=== PATIENT | male | born 1975 | race Caucasian/White ===

== ENCOUNTER 2019-10-09 09:11 | Inpatient (IN) | payer OTHER ==
[2019-10-09 09:46] VITALS: BMI 23.3
--- NOTE | 2019-10-09 10:49 | HP ---
CIWA Score Nausea/Vomitin-No Nausea/No Vomiting Muscle Tremors: 4-Moderate,w/Arms Extend Anxiety: 2 Agitation: 1-Slight > Activity Paroxysmal Sweats: 1-Minimal Palms Moist Orientation: 0-Oriented Tacttile Disturbances: 0-None Auditory Disturbances: 0-None Visual Disturbances: 0-None Headache: 0-None Present CIWA-Ar Total Score: 8 - Admission Criteria OASAS Guidelines: Admission for Medically Managed Detox: Requires at least one of the followin. CIWA greater than 12 2. Seizures within the past 24 hours 3. Delirium tremens within the past 24 hours 4. Hallucinations within the past 24 hours 5. Acute intervention needed for co occurring medical disorder 6. Acute intervention needed for co occurring psychiatric disorder 7. Severe withdrawal that cannot be handled at a lower level of care (continued vomiting, continued diarrhea, abnormal vital signs) requiring intravenous medication and/or fluids 8. Admission ROS [facility] Allergies/Adverse Reactions: Allergies Allergy/AdvReac Type Severity Reaction Status Date / Time No Known Allergies Allergy Verified 10/09/19 09:34 History of Present Illness: pt here requesting detox from etoh use , reports 6 years of 10-12 beers/day , sober x year, relapsed 1 mo ago , latest use yesterday , went to [facility] 2/2 intoxication , given meds . Reports tremors if not drinking , denies seizures or blackouts. 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 Exam Limitations: No Limitations - Ebola screening Have you traveled outside of the country in the last 21 days: No Have you had contact with anyone from an Ebola affected area: No Do you have a fever: No - Review of Systems Constitutional: Loss of Appetite EENT: reports: No Symptoms Reported Respiratory: reports: No Symptoms reported Cardiac: reports: No Symptoms Reported GI: reports: Diarrhea, Nausea, Poor Appetite : reports: No Symptoms Reported Musculoskeletal: reports: No Symptoms Reported Integumentary: reports: No Symptoms Reported Neuro: reports: No Symptoms reported Endocrine: reports: No Symptoms Reported Psychiatric: reports: Orientated x3, Anxious Patient History - Smoking Cessation Smoking history: Never smoked - Substances abused Alcohol Substance route: Oral Frequency: Daily Amount used: BEERS- 2PK(16OZ) Age of first use: 16 Date of last use: 10/08/19 Admission Physical Exam BHS - Vital Signs Vital Signs: Vital Signs - 24 hr 10/09/19 09:34 Temperature 98.3 F Pulse Rate 110 H Respiratory 18 Rate Blood Pressure 132/78 - Physical General Appearance: Yes: Mild Distress, Anxious HEENTM: Yes: EOMI, Hearing grossly Normal, Normocephalic, Normal Voice Respiratory: Yes: Chest Non-Tender, Lungs Clear, Normal Breath Sounds, No Respiratory Distress, No Accessory Muscle Use Neck: Yes: No masses,lesions,Nodules, Trachea in good position Cardiology: Yes: Regular Rhythm, Regular Rate, S1, S2, Tachycardia Abdominal: Yes: Normal Bowel Sounds, Non Tender, Soft Musculoskeletal: Yes: Gait Steady Extremities: Yes: Normal Capillary Refill, Normal Inspection, Normal Range of Motion, Non-Tender, Tremors Neurological: Yes: Fully Oriented, Alert, Motor Strength 5/5, Normal Mood/Affect Integumentary: Yes: Warm - Diagnostic (1) Alcohol intoxication Current Visit: Yes Status: Acute Breathalyzer - Breathalyzer Breathalyzer: 0.157 Urine Drug Screen - Test Device Lot number: [id number] Expiration date: 06/03/21 - Control Is test valid?: Yes - Results Drug screen NEGATIVE: No Urine drug screen results: BZO-Benzodiazepines Inpatient Rehab Admission - Rehab Decision to Admit Inpatient rehab admission?: No
[2019-10-09] MEDS ORDERED: METHOCARBAMOL 500 MG TABLET PO PRN (10:53)
[2019-10-09] MEDS ORDERED: ACETAMINOPHEN 325 MG TABLET (FP) PO PRN (10:53)
[2019-10-09] MEDS ORDERED: MENTHOL/PHENOL 1 EACH UD MM PRN (10:53)
[2019-10-09] MEDS ORDERED: MELATONIN 5 MG TABLETS PO PRN (10:53)
[2019-10-09] MEDS ORDERED: MAG HYDROX/AL HYDROX/SIMETH 30 ML UNIT-DOSE CUP PO PRN (10:53)
[2019-10-09] MEDS ORDERED: IBUPROFEN 400 MG TABLET (FP) PO PRN (10:53)
[2019-10-09] MEDS ORDERED: MAGNESIUM HYDROX 2400MG/30ML ORAL SUSPENSION 30 ML CUP PO PRN (10:53)
[2019-10-09] MEDS ORDERED: MAGNESIUM CITRATE 300 ML BOTTLE PO PRN (10:53)
[2019-10-09] MEDS ORDERED: BISMUTH SUBSALICYLATE 524 MG/30 ML UD PO PRN (10:53)
[2019-10-09] MEDS: diazePAM 5 MG TABLET PO SCH ×2 (14:53→21:38)
[2019-10-09 14:58] LABS: HEMATOCRIT 41.6 % (35.4-49); HEMOGLOBIN 13.4 GM/dL (11.7-16.9); MCH 26.8 pg (25.7-33.7); MCHC 32.2 g/dl (32.0-35.9); MEAN CELL VOLUME 83.3 fl (80-96); MEAN PLT VOLUME 8.8 fl (7.5-11.1); PLATELET COUNT 274 K/MM3 (134-434); RBC 4.99 M/mm3 (4.00-5.60); RDW 20.6 % (11.9-15.9); WHITE BLOOD COUNT 3.8 K/mm3 (4.0-10.0)
[2019-10-09 15:16] LABS: ALBUMIN 3.9 g/dl (3.4-5.0); BILIRUBIN,TOTAL 0.8 mg/dL (0.2-1); BLOOD UREA NITROGEN 3.9 mg/dL (7-18); CALCIUM 8.6 mg/dL (8.5-10.1); CREATININE 0.7 mg/dL (0.55-1.3); POTASSIUM 3.8 mmol/L (3.5-5.1); TOT PROT 7.6 g/dl (6.4-8.2)
[2019-10-09] MEDS: diazePAM 5 MG TABLET PO PRN ×2 (16:52→21:22)
[2019-10-09] MEDS: hydrOXYzine PAMOATE 25 MG CAPSULE (FP) PO PRN (18:41)
[2019-10-09] MEDS: ACETAMINOPHEN 325 MG TABLET (FP) PO PRN (19:37)
[2019-10-09] MEDS: THIAMINE HCL 100 MG TABLET (FP) PO SCH (21:22)
[2019-10-10] MEDS: diazePAM 5 MG TABLET PO PRN ×3 (02:19→15:50)
[2019-10-10] MEDS: diazePAM 5 MG TABLET PO SCH ×3 (06:23→22:32)
[2019-10-10] MEDS: PRENATAL VITAMINS W/ FOLIC ACID TABLET (FP) PO SCH (10:36)
[2019-10-10] MEDS: ACETAMINOPHEN 325 MG TABLET (FP) PO PRN (10:37)
--- NOTE | 2019-10-10 15:46 | PN ---
S CIWA - CIWA Score Nausea/Vomitin-No Nausea/No Vomiting Muscle Tremors: 4-Moderate,w/Arms Extend Anxiety: 3 Agitation: 1-Slight > Activity Paroxysmal Sweats: No Perspiration Orientation: 0-Oriented Tacttile Disturbances: 0-None Auditory Disturbances: 0-None Visual Disturbances: 2-Mild Sensitivity Headache: 3-Moderate CIWA-Ar Total Score: 13 [facility] Progress Note (SOAP) Subjective: Anxious, H/A, Tremors, Diarrhea. Objective: PATIENT A & O X 3, OBSERVED AMBULATING ON DETOX UNIT UNASSISTED. IN NO ACUTE DISTRESS. 10/10/19 15:43 Vital Signs Temperature 98.2 F 10/10/19 13:35 Pulse Rate 120 H 10/10/19 13:35 Respiratory Rate 18 10/10/19 13:35 Blood Pressure 135/94 10/10/19 13:35 O2 Sat by Pulse Oximetry (%) Laboratory Tests 10/09/19 10/09/19 10/09/19 11:30 11:30 11:30 WBC 3.8 L RBC 4.99 Hgb 13.4 Hct 41.6 MCV 83.3 MCH 26.8 MCHC 32.2 RDW 20.6 H Plt Count 274 MPV 8.8 Sodium 139 Potassium 3.8 Chloride 102 Carbon Dioxide 23 Anion Gap 14 BUN 3.9 L Creatinine 0.7 Est GFR (CKD-EPI)AfAm 134.91 Est GFR (CKD-EPI)NonAf 116.40 Random Glucose 123 H Calcium 8.6 Total Bilirubin 0.8 AST 112 H ALT 162 H Alkaline Phosphatase 127 H Total Protein 7.6 Albumin 3.9 RPR Titer Nonreactive LABS NOTED. Assessment: 10/10/19 15:44 WITHDRAWAL SYMPTOMS. ELEVATED AST, ALT, AND AP LEVELS. Plan: CONTINUE DETOX. INCREASE DAILY ORAL WATER INTAKE. REPEAT AST AND ALT LEVELS ORDERED FOR TOMORROW AM TO SEE IF ANY CHANGE IN VALUES SINCE TIME OF DETOX ADMISSION.
[2019-10-10] MEDS: hydrOXYzine PAMOATE 25 MG CAPSULE (FP) PO PRN (17:54)
[2019-10-10] MEDS: THIAMINE HCL 100 MG TABLET (FP) PO SCH (22:32)
[2019-10-11] MEDS: diazePAM 5 MG TABLET PO SCH ×2 (06:39→17:12)
[2019-10-11 10:08] LABS: SGOT/AST 65 U/L (15-37); SGPT/ALT 110 U/L (13-61)
[2019-10-11] MEDS: PRENATAL VITAMINS W/ FOLIC ACID TABLET (FP) PO SCH (10:15)
[2019-10-11] MEDS: diazePAM 5 MG TABLET PO PRN ×2 (10:16→22:35)
[2019-10-11] MEDS ORDERED: cloNIDine HCL 0.1 MG TABLET PO PRN (15:27)
--- NOTE | 2019-10-11 15:30 | PN ---
[facility] CIWA - CIWA Score Nausea/Vomitin-Mild Nausea/No Vomiting Muscle Tremors: 2 Anxiety: 3 Agitation: 2 Paroxysmal Sweats: 2 Orientation: 0-Oriented Tacttile Disturbances: 0-None Auditory Disturbances: 0-None Visual Disturbances: 0-None Headache: 0-None Present CIWA-Ar Total Score: 10 [facility] Progress Note (SOAP) Subjective: Runny nose, tremor, chills, sweating, interrupted sleep Objective: 10/11/19 15:25 Last Vital Signs Temp Pulse Resp BP Pulse Ox 98.2 F 125 H 18 136/91 10/11/19 14:53 10/11/19 14:53 10/11/19 14:53 10/11/19 14:53 Elevated b/p noted 136/91 (has htn, on med), tachycardic at 125 (technical writer was not informed) Laboratory Tests 10/09/19 10/09/19 10/09/19 11:30 11:30 11:30 WBC 3.8 L RBC 4.99 Hgb 13.4 Hct 41.6 MCV 83.3 MCH 26.8 MCHC 32.2 RDW 20.6 H Plt Count 274 MPV 8.8 Sodium 139 Potassium 3.8 Chloride 102 Carbon Dioxide 23 Anion Gap 14 BUN 3.9 L Creatinine 0.7 Est GFR (CKD-EPI)AfAm 134.91 Est GFR (CKD-EPI)NonAf 116.40 Random Glucose 123 H Calcium 8.6 Total Bilirubin 0.8 AST 112 H ALT 162 H Alkaline Phosphatase 127 H Total Protein 7.6 Albumin 3.9 RPR Titer Nonreactive 10/11/19 07:50 WBC RBC Hgb Hct MCV MCH MCHC RDW Plt Count MPV Sodium Potassium Chloride Carbon Dioxide Anion Gap BUN Creatinine Est GFR (CKD-EPI)AfAm Est GFR (CKD-EPI)NonAf Random Glucose Calcium Total Bilirubin AST 65 H ALT 110 H Alkaline Phosphatase Total Protein Albumin RPR Titer Labs reviewed: elevated LFTs (trending downwards) Assessment: 10/11/19 15:27 Withdrawal sxs Noted with tachycardia, elevated b/p and elevated LFTs Plan: Continue detox Encouraged PO water intake Tachycardia: most likely r/t withdrawal, monitor vs, encouraged to drink more water, consider EKG if tachycardia persist HTN: on atenolol 50mg daily at home, resume atenolol, monitor b/p Elevated LFTs: most likely from chronic alcoholism, LFTs trending downward, follow up with PCP post discharge for monitoring
[2019-10-11] MEDS: ATENOLOL 50 MG TABLET (FP) PO SCH (17:41)
[2019-10-11] MEDS: THIAMINE HCL 100 MG TABLET (FP) PO SCH (22:35)
[2019-10-12] MEDS ORDERED: diazePAM 5 MG TABLET PO ONE (06:00)
[2019-10-12] MEDS: diazePAM 5 MG TABLET PO SCH (06:08)
--- NOTE | 2019-10-12 09:51 | DS ---
[facility] Detox Discharge Summary Admission Date: 10/09/19 Discharge Date: 10/12/19 - History Present History: Alcohol Dependence Additional Comments: patient is stable for discharge,follow up with his own pmd for leukopenia and elevation of ast,alt probably due to alcohol dependence,patient constantino atenolol at home Pertinent Past History: hypertension - Physical Exam Results Vital Signs: Vital Signs Temperature 97.7 F 10/12/19 08:25 Pulse Rate 75 10/12/19 08:25 Respiratory Rate 18 10/12/19 08:25 Blood Pressure 101/69 10/12/19 08:25 O2 Sat by Pulse Oximetry (%) Pertinent Admission Physical Exam Findings: withdrawal signs and symptom Laboratory Last Values WBC 3.8 K/mm3 (4.0-10.0) L 10/09/19 11:30 RBC 4.99 M/mm3 (4.00-5.60) 10/09/19 11:30 Hgb 13.4 GM/dL (11.7-16.9) 10/09/19 11:30 Hct 41.6 % (35.4-49) 10/09/19 11:30 MCV 83.3 fl (80-96) 10/09/19 11:30 MCH 26.8 pg (25.7-33.7) 10/09/19 11:30 MCHC 32.2 g/dl (32.0-35.9) 10/09/19 11:30 RDW 20.6 % (11.9-15.9) H 10/09/19 11:30 Plt Count 274 K/MM3 (134-434) 10/09/19 11:30 MPV 8.8 fl (7.5-11.1) 10/09/19 11:30 Sodium 139 mmol/L (136-145) 10/09/19 11:30 Potassium 3.8 mmol/L (3.5-5.1) 10/09/19 11:30 Chloride 102 mmol/L (98-107) 10/09/19 11:30 Carbon Dioxide 23 mmol/L (21-32) 10/09/19 11:30 Anion Gap 14 MMOL/L (8-16) 10/09/19 11:30 BUN 3.9 mg/dL (7-18) L 10/09/19 11:30 Creatinine 0.7 mg/dL (0.55-1.3) 10/09/19 11:30 Est GFR (CKD-EPI)AfAm 134.91 10/09/19 11:30 Est GFR (CKD-EPI)NonAf 116.40 10/09/19 11:30 Random Glucose 123 mg/dL (74-106) H 10/09/19 11:30 Calcium 8.6 mg/dL (8.5-10.1) 10/09/19 11:30 Total Bilirubin 0.8 mg/dL (0.2-1) 10/09/19 11:30 AST 65 U/L (15-37) H 10/11/19 07:50 ALT 110 U/L (13-61) H 10/11/19 07:50 Alkaline Phosphatase 127 U/L (45-117) H 10/09/19 11:30 Total Protein 7.6 g/dl (6.4-8.2) 10/09/19 11:30 Albumin 3.9 g/dl (3.4-5.0) 10/09/19 11:30 RPR Titer Nonreactive (NONREACTIVE) 10/09/19 11:30 - Treatment Hospital Course: Detox Protocol Followed, Detoxed Safely, Discharged Condition Good, Rehab Referral Accepted Patient has Accepted a Rehab Referral to: declined - Medication Discharge Medications: Ambulatory Orders Atenolol [Tenormin -] 50 mg PO DAILY 10/09/19 - Diagnosis (1) Alcohol intoxication Status: Acute (2) Elevated alanine aminotransferase (ALT) level Status: Acute (3) Elevated alkaline phosphatase level Status: Acute (4) Elevated aspartate aminotransferase level Status: Acute (5) Alcohol dependence with uncomplicated withdrawal Status: Acute (6) Essential hypertension Status: Acute - AMA Did Patient Leave Against Medical Advice: No
--- NOTE | 2019-10-12 09:51 | PN ---
[facility] CIWA - CIWA Score Nausea/Vomitin-No Nausea/No Vomiting Muscle Tremors: 1-None Visible, but Zachary Anxiety: 1-Mildly Anxious Agitation: 1-Slight > Activity Paroxysmal Sweats: No Perspiration Orientation: 0-Oriented Tacttile Disturbances: 1-Very Mild Itch/Numbness Auditory Disturbances: 1-Very Mild Visual Disturbances: 0-None Headache: 0-None Present CIWA-Ar Total Score: 5 S Progress Note (SOAP) Subjective: alert,no compliant,alightly anxious Objective: 10/12/19 09:47 Vital Signs Temperature 97.7 F 10/12/19 08:25 Pulse Rate 75 10/12/19 08:25 Respiratory Rate 18 10/12/19 08:25 Blood Pressure 101/69 10/12/19 08:25 O2 Sat by Pulse Oximetry (%) 10/12/19 09:47 Abnormal Lab Results 10/11/19 07:50 AST 65 H ALT 110 H Assessment: 10/12/19 09:48 detox completed,no withdrawal symptom Plan: stable for discharge today,follow up with after care program as arrangement and follow up with medical provider for elavation of alt,ast patient understood
[2019-10-12] MEDS: PRENATAL VITAMINS W/ FOLIC ACID TABLET (FP) PO SCH (10:43)
[2019-10-12] MEDS: hydrOXYzine PAMOATE 25 MG CAPSULE (FP) PO PRN (10:45)
[2019-10-12] MEDS: ATENOLOL 50 MG TABLET (FP) PO SCH (10:46)
[2019-10-12 11:30] VITALS: BP 119/70; PULSE 88; TEMP 98.1
[2019-10-13] MEDS ORDERED: diazePAM 5 MG TABLET PO ONE (06:00)
== END 2019-10-12 11:40 | disposition home or self-care (01) | DRG 775 ==
LOC: YASAS 09:11 → Y6N 11:25
PROVIDERS: ADMIT Allergy & Immunology; ATTEND Allergy & Immunology
PROC: HZ2ZZZZ Detoxification Services for Substance Abuse Treatment (ICD-10-PCS; principal; 2019-10-09)
DX: F10.230 Alcohol dependence with withdrawal, uncomplicated (principal); F10.220 Alcohol dependence with intoxication, uncomplicated; I10 Essential (primary) hypertension; D72.819 Decreased white blood cell count, unspecified; R94.5 Abnormal results of liver function studies; R00.0 Tachycardia, unspecified
CPT/HCPCS: 36415; 80053; 84450; 84460; 85027; 86593